=== PATIENT | female | born 1985 | race Caucasian/White ===

== ENCOUNTER 2018-06-28 14:50 | Emergency (ER) | payer BC ==
[2018-06-28 16:38] VITALS: BP 124/81
--- NOTE | 2018-06-28 16:43 | UC ---
Throat Pain/Nasal [place] HPI - HPI Summary HPI Summary: Onset of rigors, headache, cough and malaise yesterday morning. Concerned that this might be strep; symptoms are also suggestive of flu. No vomiting or diarrhea. - History of Current Complaint Chief Complaint: UCRespiratory Stated Complaint: COUGH,SORE THROAT Time Seen by Provider: 06/28/18 16:41 Hx Obtained From: Patient, Family/Settlement Worker Hx Last Menstrual Period: 06/20/18 Onset/Duration: Sudden Onset, Lasting Days - 2 Severity: Moderate Pain Intensity: 6 Cough: Nonproductive Associated Signs & Symptoms: Positive: Dysphagia, Hoarseness - Epiglottits Risk Factors Epiglottis Risk Factors: Negative - Allergies/Home Medications Allergies/Adverse Reactions: Allergies Allergy/AdvReac Type Severity Reaction Status Date / Time shellfish derived Allergy GI Upset Verified 06/28/18 16:32 poultry Allergy Itching Uncoded 02/06/17 13:16 Home Medications: Home Medications Aspirin/Acetaminophen/Caffeine [Excedrin Migraine Caplet] 2 each PO ONCE PRN 02/05 [History Confirmed 06/28/18] Levonorgestrel (Iud) [Mirena IUD] 20 mcg IU ONCE 06/28/18 [History Confirmed 02/05] PMH/Surg Hx/FS Hx/Imm Hx Previously Healthy: Yes Endocrine History: Thyroid Disease - thyroid goiter, Hypothyroidism Neurological History: Migraine - Surgical History Surgical History: Yes Surgery Procedure, Year, and Place: tonsillectomy, neck lumpectomy, appy, wisdom teeth extraction, polypectomy - Family History Known Family History: Positive: Cardiac Disease, Diabetes, Other - hypothroidism - Social History Occupation: Employed Full-time Lives: Alone Alcohol Use: Occasionally Substance Use Type: None Smoking Status (MU): Never Smoked Tobacco Review of Systems All Other Systems Reviewed And Are Negative: Yes Constitutional: Positive: Fever, Fatigue ENT: Positive: Sore Throat Respiratory: Positive: Cough Cardiovascular: Positive: Negative Gastrointestinal: Positive: Negative Genitourinary: Positive: Negative Motor: Positive: Negative Neurovascular: Positive: Negative Musculoskeletal: Positive: Myalgia Neurological: Positive: Headache - has had 2 migraines this week. Psychological: Positive: Negative Physical Exam Triage Information Reviewed: Yes Appearance: No Pain Distress, Ill-Appearing Vital Signs: Initial Vital Signs Temp 100 F 06/28/18 16:34 Pulse 89 06/28/18 16:34 Resp 17 06/28/18 16:34 BP 124/81 06/28/18 16:34 Pulse Ox 100 06/28/18 16:34 Eyes: Positive: Conjunctiva Clear ENT: Positive: Pharyngeal erythema - past tonsillectomy, TM dull - right serous fluid Dental Exam: Normal Neck exam: Other - thyroid diffusely enlarged. Neck: Positive: Supple, Nontender, No Lymphadenopathy Respiratory: Positive: Lungs clear, Normal breath sounds Cardiovascular: Positive: RRR, No Murmur Musculoskeletal Exam: Normal Neurological: Positive: Alert, Muscle Tone Normal Psychological Exam: Normal Skin Exam: Normal Throat Pain/Nasal Course/Dx - Course Course Of Treatment: symptomatic treatment of viral illness. Follow up if not improving - Differential Dx/Diagnosis Differential Diagnosis/HQI/PQRI: Influenza, Laryngitis, URI, Other - strep Provider Diagnosis: Viral syndrome Discharge - Sign-Out/Discharge Documenting (check all that apply): Patient Departure All imaging exams completed and their final reports reviewed: No Studies - Discharge Plan Condition: Stable Disposition: HOME Patient Education Materials: Viral Syndrome (ED) Referrals: Emi Jacobson MD [Primary Care Provider] - Additional Instructions: Clinically there is no evidence of bacterial infection. Both flu and strep tests are negative. Rest at home, using ibuprofen or acetaminophen to control the fever and aches. Follow up here or with your primary care doctor if you have fever persisting beyond the 30 of June or if you develop new symptoms. - Billing Disposition and Condition Condition: STABLE Disposition: Home
[2018-06-28 17:12] LABS: Influenza A Molecular NEGATIVE (Negative); Influenza B Molecular NEGATIVE (Negative)
== END 2018-06-28 17:32 | disposition home or self-care (01) ==
LOC: UCCORT 14:50
DX: B34.9 Viral infection, unspecified (principal); E03.9 Hypothyroidism, unspecified; G43.909 Migraine, unspecified, not intractable, without status migrainosus; Z91.013 Allergy to seafood; Z91.018 Allergy to other foods
CPT/HCPCS: 87651; 99211; G0463

== ENCOUNTER 2018-07-01 07:26 | Emergency (ER) | payer BC ==
[2018-07-01 07:54] VITALS: BP 114/78
--- NOTE | 2018-07-01 08:14 | UC ---
Throat Pain/Nasal [place] HPI - HPI Summary HPI Summary: 32-year-old female presents with persistent nasal congestion, sinus pain, postnasal drip, and productive cough. She was seen at this facility on 2018 for similar symptoms and diagnosed with viral illness. States since that time she has continued to have intermittent fever and chills. Reports green nasal drainage, green drainage from her left eye with erythema, and a productive cough or sputum. Denies ear pain, sore throat, chest pain, shortness of breath, abdominal pain, nausea, or vomiting. - History of Current Complaint Chief Complaint: UCGeneralIllness Stated Complaint: SINUS CONGESTION Time Seen by Provider: 07/01/18 08:07 Hx Obtained From: Patient Hx Last Menstrual Period: 06/20/18 Pain Intensity: 6 - Allergies/Home Medications Allergies/Adverse Reactions: Allergies Allergy/AdvReac Type Severity Reaction Status Date / Time shellfish derived Allergy GI Upset Verified 06/28/18 16:32 poultry Allergy Itching Uncoded 02/06/17 13:16 Home Medications: Home Medications Ursodiol 250 mg PO TID 07/01/18 [History Confirmed 07/01/18] PMH/Surg Hx/FS Hx/Imm Hx Endocrine History: Hypothyroidism GI/ History: Gall Bladder Disease - Surgical History Surgical History: Yes Surgery Procedure, Year, and Place: tonsillectomy, neck lumpectomy, appy, wisdom teeth extraction, polypectomy - Family History Known Family History: Positive: Cardiac Disease, Diabetes, Other - hypothroidism - Social History Occupation: Employed Part-time Lives: With Family Alcohol Use: Occasionally Substance Use Type: None Smoking Status (MU): Never Smoked Tobacco Review of Systems All Other Systems Reviewed And Are Negative: Yes Constitutional: Positive: Fever, Chills, Fatigue Skin: Negative: Rash Eyes: Positive: Drainage, Eye Redness ENT: Positive: Nasal Discharge, Sinus Congestion, Sinus Pain/Tenderness. Negative: Sore Throat, Ear Ache Respiratory: Positive: Cough. Negative: Shortness Of Breath Cardiovascular: Negative: Palpitations, Chest Pain Gastrointestinal: Negative: Abdominal Pain, Vomiting, Diarrhea, Nausea Genitourinary: Positive: Negative Musculoskeletal: Positive: Negative Neurological: Positive: Negative Is Patient Immunocompromised?: No Physical Exam - Summary Physical Exam Summary: GENERAL APPEARANCE: Well developed, well nourished, alert and cooperative, and appears to be in no acute distress. EYES: Conjunctiva clear. No drainage. EARS: External auditory canals and tympanic membranes clear, hearing grossly intact. NOSE: Moderate nasal congestion with mucosal erythema and edema. THROAT: Pharyngeal cobblestoning. Tonsils surgically absent. Uvula midline. Oral cavity normal. Teeth and gingiva in good general condition. NECK: Neck supple, non-tender without lymphadenopathy. CARDIAC: Normal S1 and S2. No S3, S4 or murmurs. Rhythm is regular. There is no peripheral edema, cyanosis or pallor. Extremities are warm and well perfused. Capillary refill is less than 2 seconds. Peripheral pulses intact. LUNGS: Clear to auscultation without rales, rhonchi, wheezing or diminished breath sounds. Non-productive cough. ABDOMEN: Positive bowel sounds. Soft, nondistended, nontender. No guarding or rebound. No masses or hepatosplenomegally. MUSKULOSKELETAL: ROM intact to all extremities. No joint erythema or tenderness. Normal muscular development. Normal gait. SKIN: Skin normal color, texture and turgor with no lesions or eruptions. Triage Information Reviewed: Yes Vital Signs: Initial Vital Signs Temp 98.3 F 07/01/18 07:48 Pulse 88 07/01/18 07:48 Resp 16 07/01/18 07:48 BP 114/78 07/01/18 07:48 Pulse Ox 98 07/01/18 07:48 Vital Signs Reviewed: Yes Throat Pain/Nasal Course/Dx - Course Course Of Treatment: 32-year-old female presents with persistent nasal congestion, sinus pain, postnasal drip, and productive cough. She was seen at this facility on 2018 for similar symptoms and diagnosed with viral illness. States since that time she has continued to have intermittent fever and chills. Reports green nasal drainage, green drainage from her left eye with erythema, and a productive cough or sputum. Denies ear pain, sore throat, chest pain, shortness of breath, abdominal pain, nausea, or vomiting. Afebrile. Vital signs stable. Exam remarkable for moderate nasal congestion with mucosal erythema and edema, pharyngeal cobblestoning, and a nonproductive cough. Given the worsening of her symptoms and the persistent fever I will treat her for an acute sinusitis with Augmentin 875 mg twice a day 10 days as well as symptomatic treatment. She is to follow-up with her primary care provider in 5 days. Anticipatory guidance and warning symptoms were reviewed with the patient. Verbalized understanding and agrees with plan of care. - Differential Dx/Diagnosis Differential Diagnosis/HQI/PQRI: Influenza, Pharyngitis, Sinusitis, URI Provider Diagnosis: Acute maxillary sinusitis Discharge - Sign-Out/Discharge Documenting (check all that apply): Patient Departure All imaging exams completed and their final reports reviewed: No Studies - Discharge Plan Condition: Stable Disposition: HOME Prescriptions: Amoxicillin/Clavulanate TAB* [Augmentin TAB 875*] 875 mg PO BID #20 tab Fluticasone NASAL SPRAY 50MCG* [Flonase NASAL SPRAY 50MCG*] 2 spray BOTH NARES DAILY #1 btl Patient Education Materials: Sinusitis (ED) Referrals: Emi Jacobson MD [Primary Care Provider] - Additional Instructions: Your history and exam are consistent with a sinus infection. With the worsening of your symptoms we will treat you with an antibiotic. Start Augmentin 875 mg 1 tab twice a day for 10 days. Take with food to avoid upset stomach. Be sure to complete the entire course even if feeling better. Drink plenty of fluids to avoid dehydration especially if you are running any fever. Use a saline rinse kit such as Neti Pot or NeilMed at least twice a day to help thin secretions and promote drainage of the sinuses. Use fluticasone (Flonase) nasal spray 2 sprays each nostril once daily. Use an over the counter decongestant such as Sudafed according to directions to help with congestion. Take over the counter acetaminophen (Tylenol) or ibuprofen (Advil, Motrin) according to directions as needed for pain or fever. Follow up with your primary care provider in 5 days. Seek immediate medical attention in the emergency room if you have fever greater than 100.5 F despite taking acetaminophen or ibuprofen, have chest pain , difficulty breathing, are unable to swallow, or have any worsening of symptoms. - Billing Disposition and Condition Condition: STABLE Disposition: Home - Attestation Statements Provider Attestation: Per institutional requirements, I have reviewed the chart, however, I was not consulted specifically or made aware of this patient by the midlevel provider. I did not personally evaluate, interact with , or disposition this patient.
== END 2018-07-01 08:31 | disposition home or self-care (01) ==
LOC: UCCORT 07:26
DX: J01.00 Acute maxillary sinusitis, unspecified (principal); R50.9 Fever, unspecified; H57.89 Other specified disorders of eye and adnexa; E03.9 Hypothyroidism, unspecified; K82.9 Disease of gallbladder, unspecified; Z91.013 Allergy to seafood; Z91.018 Allergy to other foods
CPT/HCPCS: 99212; G0463